=== PATIENT | female | born 2000 | race Caucasian/White ===

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

== ENCOUNTER 2020-01-04 17:22 | Outpatient (CLI) | payer MEDICAID | END 2020-01-04 17:23 | disposition home or self-care (01) | LOC: COV 17:22 | PROVIDERS: ATTEND Family Medicine | DX: R05 Cough (principal); R50.9 Fever, unspecified | CPT/HCPCS: 81599 ==

== ENCOUNTER 2020-10-12 19:09 | Emergency (ER) | payer MEDICAID ==
--- NOTE | 2020-10-12 21:25 | ED Physician Documentation ---
PD HPI BACK PAIN - Stated complaint Stated Complaint: FALL DOWN STAIRS - Chief complaint Chief Complaint: Ext Problem - History obtained from History obtained from: Patient - History of Present Illness Timing - onset: Last night (about 20:30 hours in evening) Timing - details: Abrupt onset, Still present Location: Lower, Other (midline) Quality: Other (slipped and fell backward on stair and struck low back. Pain in low back. No leg weakness nor numbness. No radiating pain.) Associated symptoms: No: Fever, Weakness, Numbness Worsened by: Movement, Twisting Contributing factors: Trauma (fell and struck low back on stair.). 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 HEENT: None Psych: None Musculoskeletal: None Derm: None - Past Surgical History Past Surgical History: No - Present Medications Home Medications: Ambulatory Orders Medication Instructions Recorded Confirmed Ondansetron HCl [Zofran] 4 mg PO Q6H PRN #10 tablet 12/20/16 10/12/20 Ibuprofen [Motrin] 800 mg PO Q8H PRN #30 tablet 12/11/18 10/12/20 Hydrocodone/Acetaminophen [Sylmar 1 each PO Q6H PRN #15 tablet 10/12/20 5-325 Tablet] tiZANidine [Zanaflex] 4 mg PO Q8H PRN #15 tablet 10/12/20 - Allergies Allergies/Adverse Reactions: Allergies Allergy/AdvReac Type Severity Reaction Status Date / Time No Known Drug Allergies Allergy Verified 10/12/20 19:25 - Social History Does the pt smoke?: No Smoking Status: Never smoker Does the pt drink ETOH?: No Does the pt have substance abuse?: No Substance Use and Type: CBD oil / Products - Immunizations Immunizations are current?: Yes - POLST Patient has POLST: No PD ED PE NORMAL - Vitals Vital signs reviewed: Yes - General General: Alert and oriented X 3, No acute distress (guarded ROM for low back but not appearing in significant distress. ), Well developed/nourished - HEENT HEENT: Atraumatic - Neck Neck: Supple, no meningeal sign, No bony TTP - Respiratory Respiratory: Clear bilaterally - Abdomen Abdomen: Soft, Non tender - Back Back: No CVA TTP, Other (tender in mid lumbar area midline, without deformity. No noted bruising nor redness. ) - Derm Derm: Normal color, Warm and dry - Neuro Neuro: Alert and oriented X 3, No motor deficit, No sensory deficit Results - Vitals Vitals: Vital Signs - 24 hr 10/12/20 10/12/20 19:10 23:12 Temperature 36.0 C L 36.8 C Heart Rate 99 93 Respiratory 16 16 Rate Blood Pressure 140/90 H 131/82 H O2 Saturation 99 96 Oxygen O2 Source Room air - Rads (name of study) lumbar CT Radiology: Prelim report reviewed (no noted fractures), See rad report PD MEDICAL DECISION MAKING - ED course Complexity details: reviewed results, considered differential, d/w patient Departure - Departure Disposition: 01 Home, Self Care Clinical Impression: Fall from slip, trip, or stumble Qualifiers: Encounter type: initial encounter Qualified Code(s): W01.0XXA - Fall on same level from slipping, tripping and stumbling without subsequent striking against object, initial encounter Contusion of lower back Qualifiers: Encounter type: initial encounter Qualified Code(s): S30.0XXA - Contusion of lower back and pelvis, initial encounter Condition: Stable Record reviewed to determine appropriate education?: Yes Instructions: ED Low Back Pain Injury Follow-Up: Marie Wells PA-C [Primary Care Provider] - Prescriptions: Hydrocodone/Acetaminophen [Sylmar 5-325 Tablet] 1 each PO Q6H PRN #15 tablet PRN Reason: Pain tiZANidine [Zanaflex] 4 mg PO Q8H PRN #15 tablet PRN Reason: Spasms Comments: Your CT scan of the low back did not show any obvious organ injury or fractures. You will still be sore from the impact of the fall on the muscles and soft tissue. Activity as tolerated. Ibuprofen 600 mg 3 times a day with food for the next several days to a week. Add Tylenol or hydrocodone as needed for pain. You could also use tizanidine if needed for muscle spasms and stiffness. Recheck if not improved well over the next several days and resolved by a week. Okay to resume work based on level of comfort and modulate activity level based on that. Bleeding no repetitive bending or lifting for couple of days. Discharge Date/Time: 10/12/20 23:23
[2020-10-12] MEDS ORDERED: HYDROmorphone 2 MG/ML VIAL IM STA (21:33)
[2020-10-12] MEDS ORDERED: KETOROLAC 30 MG/ML VIAL IM STA (21:33)
[2020-10-12] MEDS ORDERED: HYDROcod/ACET 5/325 Prepack 4 PO STA (22:41)
[2020-10-12 23:13] VITALS: BP 131/82
--- NOTE | 2020-10-13 09:20 | CT Report ---
PROCEDURE: LUMBAR SPINE WO INDICATIONS: fall and struck low back TECHNIQUE: Noncontrast 3 mm thick sections acquired from the T12 level to the sacrum. Sagittal and coronal refo rmats were constructed. For radiation dose reduction, the following was used: automated exposure co ntrol, adjustment of mA and/or kV according to patient size. COMPARISON: None. FINDINGS: Image quality: Excellent. Bones: There is normal bony alignment. No acute vertebral body compression fractures. No suspiciou s lytic or blastic bony lesions. Central spinal caliber is of normal overall caliber. No pars defec ts. T12-L1: Normal in appearance. L1-L2: Normal in appearance. L2-L3: Normal in appearance. L3-L4: Normal in appearance. L4-L5: Normal in appearance. L5-S1: Normal in appearance. Soft tissues: No retroperitoneal masses or hematomas. Visualized aorta is normal in caliber. IMPRESSION: No lumbar spine fracture. No significant discrepancy with the preliminary report. Reviewed by: Az Solorzano MD on 10/13/2020 9:19 AM [facility] Approved by: Az Solorzano MD on 10/13/2020 9:19 AM PST Station ID: [id number]
--- OUTSIDE RECORDS SUMMARY | 2020-10-19 00:53 | EXTERNAL MEDICAL SUMMARY RPT | Continuity of Care Document ---
:2000 Demographics Phone Unavailable Preferred Language Kyrgyz Marital Status Unknown Druze Affiliation Unknown Race Unknown Ethnic Group Unknown Author Organization [place] Address [address] [place] [address] Phone Care Team Providers Name Role Phone Marie Wells Unavailable Unavailable Liat BRIONES, Unavailable Unavailable Problems date description facility 2020-08-12 00:00:00 Exercise induced bronchospasm [facility] 2020-08-12 00:00:00 [facility]related [facility] 2020-08-12 00:00:00 [facility] 2020-08-12 00:00:00 Exercise [facility] 2020-08-12 00:00:00 Never smoker [facility] 2020-08-12 00:00:00 Exercise-induced asthma [facility] 2020-08-12 00:00:00 [facility] 2020-08-12 00:00:00 Feeling down, depressed, or [facility] hopeless? [facility] 2020-08-12 00:00:00 Patient Health Questionnaire [facility] item ([facility] total score [facility] 2020-08-12 00:00:00 Alcohol use [facility] 2020-08-12 00:00:00 Total score? [facility] 2020-09-26 00:00:00 Health-related behavior [facility] 2020-09-26 00:00:00 [facility] exposure [facility] 2020-09-26 00:00:00 Exercise [facility] 2020-09-26 00:00:00 [facility] smoker [facility] 2020-09-26 00:00:00 [facility] 2020-10-12 19:09 CONTUSION OF [facility]OWER [facility] [place] P[facility], INITIAL ENCOUN 2020-10-12 19:09 FALL (ON) (FROM) UNSPECIFIED [facility] STAIRS AND STEPS, INI 2020-10-12 [address] IN UNSP NON-INSTITUT [facility] (PRIVATE) RESIDENC 2020-10-12 19:09 ACTIVITY, WALKING, MARCHING AND [facility] HIKING Allergies date description facility NO KNOWN ENVIRONMENTAL ALLERGIES [facility] NO KNOWN ALL[facility]GIES [facility]AC[facility]AM [facility] MARTA [facility]IBIT[facility] IODINE AND IODIDE CONTAINING PRODUCTS [facility] PISTACHIO NUT [facility] MET[facility]ROLOL [facility]IN [facility]IL [facility] No Known Drug Allergies [facility] Social History date description facility 2020-08-12 00:00:00 [facility] date description facility 2020-09-26 00:00:00 [facility] Social History date description facility 2020-08-12 00:00:00 [facility] date description facility 2020-09-26 00:00:00 [facility] date description facility [id number]
== END 2020-10-12 23:23 | disposition home or self-care (01) ==
LOC: ED 19:09
DX: S30.0XXA Contusion of lower back and pelvis, initial encounter (principal); W10.9XXA Fall (on) (from) unspecified stairs and steps, initial encounter; Y93.01 Activity, walking, marching and hiking; Y92.009 Unspecified place in unspecified non-institutional (private) residence as the place of occurrence of the external cause
CPT/HCPCS: 72131; 96372; 99284; J1170

== ENCOUNTER 2021-02-15 08:00 | Outpatient (CLI) | payer MEDICAID ==
--- NOTE | 2021-02-15 18:56 | XRAY Report ---
PROCEDURE: Mastoids 2 Views INDICATIONS: R JAW PAIN TECHNIQUE: 3 views of the mastoids were obtained COMPARISON: None. FINDINGS: Normal bone mineralization. Mastoids are appropriately aerated without evidence of sclerosis or opaci fication. Both temporomandibular joints are unremarkable. No lytic or blastic lesions. No radiopaque foreign bodies IMPRESSION: Unremarkable mastoid radiographs Reviewed by: Serge Berry MD on 02/15/2021 5:55 PM [facility] Approved by: Serge Berry MD on 02/15/2021 5:55 PM [facility] Station ID: [id number]
== END 2021-02-15 23:59 | disposition home or self-care (01) ==
LOC: DI.N 08:00 → MERGE 17:30 → DI.N 23:59
PROVIDERS: ATTEND Family Medicine
DX: R68.84 Jaw pain (principal)

== ENCOUNTER 2021-02-17 23:17 | Emergency (ER) | payer MEDICAID ==
--- NOTE | 2021-02-18 00:05 | ED Physician Documentation ---
PD HPI HEENT - Stated complaint Stated Complaint: R LOWER JAW PX - Chief complaint Chief Complaint: Heent - History obtained from History obtained from: Patient - History of Present Illness Timing - onset: How many weeks ago (3) Timing - duration: Weeks (3) Timing - details: Gradual onset, Constant, Waxing and waning Pain level now: 4 Location: Other (right jaw at TMJ) Improves: Nothing Worsens: Other (opening mouth) Associated symptoms: No: Fever, Congestion, Rhinorrhea, Trismus, Unable to swallow, Swollen nodes, Facial swelling, Headache, Cough Similar symptoms before: No diagnosis Recently seen: Clinic - Additional information Additional information: c/o 3 weeks of atraumatic right jaw pain centered at right TMJ. pain radiates to the right ear and is distinctly worse when trying to open mouth wide as well as chewing. Denies fever, denies sore throat. She denies having similar symptoms previously. She says she was evaluated by a dentist 2 days ago and had xrays (her description suggests panorex xray) and she was told there was no abnormality found nor concern for acute/emergent dental problem. Later the same day, she was evaluated at a walk-in clinic and she had mastoid xrays performed (these are available to me in PACS and they are interpreted by radiologist as "unremarkable mastoid radiographs"). she was prescribed diclofenac but this is not providing adequate pain relief. Review of Systems Constitutional: denies: Fever, Chills, Sweats Ears: reports: Ear pain. 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 : None HEENT: None Psych: None Musculoskeletal: None Derm: None - Past Surgical History Past Surgical History: No - Present Medications Home Medications: Ambulatory Orders Medication Instructions Recorded Confirmed tiZANidine [Zanaflex] 4 mg PO Q8H PRN #15 tablet 10/12/20 02/17/21 Diclofenac Submicronized 75 mg PO BID 02/17/21 02/17/21 [Diclofenac] Cyclobenzaprine [Flexeril] 10 mg PO TID PRN #20 tablet 02/18/21 oxyCODONE/ACET 5/325 [Percocet 5 1 - 2 each PO Q6H PRN #14 tablet 02/18/21 mg/325 mg] - Allergies Allergies/Adverse Reactions: Allergies Allergy/AdvReac Type Severity Reaction Status Date / Time No Known Drug Allergies Allergy Verified 02/17/21 23:29 - Social History Does the pt smoke?: No Smoking Status: Never smoker Does the pt drink ETOH?: No Does the pt have substance abuse?: No - Immunizations Immunizations are current?: Yes - POLST Patient has POLST: No PD ED PE NORMAL - Vitals Vital signs reviewed: Yes - General General: Alert and oriented X 3, No acute distress, Well developed/nourished - HEENT HEENT: Atraumatic, Moist mucous membranes, Pharynx benign, Dentition benign - Neck Neck: Supple, no meningeal sign PD ED PE EXPANDED - HEENT HEENT: Ears normal (normal right external auditory canal, normal right TM; no pain elicited with pressure to tragus. ), Other (no mastoid tenderness or erythema. there is TTP of right TMJ and limited opening of mouth due to right jaw pain but she is able to open mouth to allow for intraoral and posterior o/p exam. no posterior o/p swelling, erythema, exudate. normal gingiva and oral mucosa) Results - Vitals Vitals: Vital Signs - 24 hr 02/17/21 02/17/21 02/18/21 23:27 23:34 00:47 Temperature 36.5 C 36.5 C 36.5 C Heart Rate 92 92 81 Respiratory 17 17 16 Rate Blood Pressure 148/94 H 148/94 H 142/79 H O2 Saturation 100 100 100 Oxygen O2 Source Room air PD MEDICAL DECISION MAKING - ED course Complexity details: reviewed old records (reviewed mastoid xrays that were performed 02/15/21), considered differential, d/w patient ED course: normal exam except for TTP directly over right TMJ and mild limitation in ROM of jaw (cannot open mouth fully, but enough to allow for complete intraoral exam including posterior o/p). H+P strongly suggests pathology limited to right temporomandibular joint without evidence (neither physical nor historical) of infectious etiology. Denies trauma. She had xrays performed 02/15/21 and was evaluated by a dentist as well as in walk-in clinic. Emergent testing is not indicated at this time. I advised her to follow up with her primary care provider, also provided information for f/u with Dr. Suresh Torre. She given rx for flexeril and percocet for symptom relief Departure - Departure Disposition: 01 Home, Self Care Clinical Impression: TMJ arthralgia Qualifiers: Laterality: right Qualified Code(s): M26.621 - Arthralgia of right temporomandibular joint Condition: Good Instructions: NARCOTIC, Oral, ED TMJ Syndrome Follow-Up: Suresh Torre DDS [Provider Admit Priv/Credential] - Prescriptions: Cyclobenzaprine [Flexeril] 10 mg PO TID PRN #20 tablet PRN Reason: Spasms oxyCODONE/ACET 5/325 [Percocet 5 mg/325 mg] 1 - 2 each PO Q6H PRN #14 tablet PRN Reason: Pain Comments: As we discussed, you should continue with the diclofenac as prescribed. You can take the percocet and flexeril in addition to the diclofenac if you don't experience adequate relief with the diclofenac alone. You would likely benefit from follow up with a specialist such as ENT or OMFS (gama-maxillo facial surgery). Discharge Date/Time: 02/18/21 00:47
[2021-02-18] MEDS ORDERED: CYCLOBENZAPRINE 10 MG Prepack 2 PO STA (00:30)
[2021-02-18] MEDS ORDERED: oxyCODONE/ACET 5/325 Prepack 4 PO STA (00:30)
[2021-02-18 00:48] VITALS: BP 142/79
== END 2021-02-18 00:47 | disposition home or self-care (01) ==
LOC: ED 23:17
DX: M26.621 Arthralgia of right temporomandibular joint (principal)
CPT/HCPCS: 99282; 99283

== ENCOUNTER 2021-08-17 09:02 | Outpatient (CLI) | payer MEDICAID ==
[2021-08-17 13:00] LABS: BASOPHILS # (AUTO) 0.1 10^3/uL (0.0-0.1); BASOPHILS % (AUTO) 0.7 %; EOSINOPHILS # (AUTO) 0.1 10^3/uL (0.0-0.7); EOSINOPHILS % (AUTO) 1.5 %; HGB - HEMOGLOBIN 13.8 g/dL (12.0-16.0); LYMPHOCYTES # (AUTO) 3.2 10^3/uL (1.5-3.5); LYMPHOCYTES % (AUTO) 35.2 %; MEAN CORPUSCULAR HEMOGLOBIN 28.4 pg (27.0-31.0); MEAN CORPUSCULAR HGB CONC 32.1 g/dL (32.0-36.0); MEAN CORPUSCULAR VOLUME 88.5 fL (81.0-99.0); MEAN PLATELET VOLUME 11.4 fL (7.9-10.8); MONOCYTES # (AUTO) 0.7 10^3/uL (0.0-1.0); MONOCYTES % (AUTO) 7.4 %; NEUTROPHILS # (AUTO) 4.9 10^3/uL (1.5-6.6); PLT - PLATELET COUNT 319 10^3/uL (130-450); RED BLOOD COUNT 4.86 10^6/uL (4.20-5.40); RED CELL DISTRIBUTION WIDTH 12.6 % (12.0-15.0)
[2021-08-17 13:05] LABS: ESTIMATED AVERAGE GLUCOSE 108 mg/dL (70-100); HEMOGLOBIN A1c% 5.4 % (4.27-6.07)
[2021-08-17 13:10] LABS: CREATININE,URINE 140.3 mg/dL; MICROALBUM/CREATININE RATIO,UR 5.7 ug/mg (<30.0); MICROALBUMIN,URINE 0.8 mg/dL (0-300.0)
[2021-08-17 13:13] LABS: ALBUMIN 4.3 g/dL (3.2-5.5); ALBUMIN/GLOBULIN RATIO 1.2 (1.0-2.2); ALKALINE PHOSPHATASE 97 IU/L (42-121); ALT ALANINE AMINOTRANSFERASE 18 IU/L (10-60); AST ASPARTATE AMINOTRANSFERASE 17 IU/L (10-42); BILIRUBIN,TOTAL 0.7 mg/dL (0.2-1.0); BUN - BLOOD UREA NITROGEN 15 mg/dL (6-20); CALCIUM 9.7 mg/dL (8.5-10.3); CARBON DIOXIDE - CO2 27 mmol/L (21-32); CHLORIDE 106 mmol/L (101-111); CHOL/HDL RATIO 2.7 (<4.4); CHOLESTEROL 137 mg/dL; CREATININE 0.5 mg/dL (0.4-1.0); GFR - MDRD 156 (>89); GLUCOSE 95 mg/dL (70-100); HDL CHOLESTEROL 51 mg/dL; LDL CHOLESTEROL,CALCULATED 65 mg/dL; LDL/HDL RATIO 1.3 (<4.4); POTASSIUM 4.2 mmol/L (3.5-5.0); SODIUM 142 mmol/L (135-145); TRIGLYCERIDES 104 mg/dL; VLDL CHOLESTEROL 21 mg/dL
[2021-08-17 13:23] LABS: THYROID STIMULATING HORMONE 1.78 uIU/mL (0.34-5.60)
== END 2021-08-17 09:03 | disposition home or self-care (01) ==
LOC: LAB.N 09:02
PROVIDERS: ATTEND Internal Medicine
DX: R73.01 Impaired fasting glucose (principal); Z13.220 Encounter for screening for lipoid disorders; Z13.29 Encounter for screening for other suspected endocrine disorder; J45.990 Exercise induced bronchospasm
CPT/HCPCS: 36415; 80053; 80061; 82043; 82570; 83036; 83721; 84443; 85025

== ENCOUNTER 2021-11-23 09:41 | Outpatient (CLI) | payer MEDICAID ==
--- NOTE | 2021-11-23 12:44 | XRAY Report ---
PROCEDURE: TMJ's-Temporal Mandibular Jts INDICATIONS: CAPSULITIS OF TMJ, BILAT TECHNIQUE: 2 view(s) of the right and left temporomandibular joints acquired. COMPARISON: None FINDINGS: Bones: No fractures or dislocations. No suspicious bony lesions. Normal positioning of the mandible condylar heads in both the open and closed mouth positions. Soft tissues: No suspicious soft tissue calcifications. IMPRESSION: No fracture. No osseous lesion. If there are persistent symptoms or continued clinical concern for pa thology, then advanced imaging (CT or MRI) should be considered for further evaluation. Reviewed by: Regla Robbins MD, PhD on 11/23/2021 12:43 PM PST Approved by: Regla Robbins MD, PhD on 11/23/2021 12:43 PM PST Station ID: [id number]
== END 2021-11-23 09:42 | disposition home or self-care (01) ==
LOC: DI.N 09:41
PROVIDERS: ATTEND Internal Medicine
DX: M26.69 Other specified disorders of temporomandibular joint (principal)

== ENCOUNTER 2022-10-05 14:39 | Outpatient (CLI) | payer MEDICAID ==
[2022-10-05 18:26] LABS: BASOPHILS # (AUTO) 0.1 10^3/uL (0.0-0.1); BASOPHILS % (AUTO) 0.6 %; EOSINOPHILS # (AUTO) 0.1 10^3/uL (0.0-0.7); HCT - HEMATOCRIT 41.3 % (37.0-47.0); HGB - HEMOGLOBIN 13.4 g/dL (12.0-16.0); LYMPHOCYTES # (AUTO) 3.2 10^3/uL (1.5-3.5); MEAN CORPUSCULAR HEMOGLOBIN 28.6 pg (27.0-31.0); MEAN CORPUSCULAR HGB CONC 32.4 g/dL (32.0-36.0); MEAN CORPUSCULAR VOLUME 88.2 fL (81.0-99.0); MEAN PLATELET VOLUME 11.1 fL (7.9-10.8); MONOCYTES # (AUTO) 0.7 10^3/uL (0.0-1.0); MONOCYTES % (AUTO) 6.7 %; NEUTROPHILS # (AUTO) 6.5 10^3/uL (1.5-6.6); NEUTROPHILS % (AUTO) 61.5 %; PLT - PLATELET COUNT 319 10^3/uL (130-450); RED BLOOD COUNT 4.68 10^6/uL (4.20-5.40); RED CELL DISTRIBUTION WIDTH 12.2 % (12.0-15.0); WHITE BLOOD COUNT 10.6 x10^3/uL (4.8-10.8)
[2022-10-05 18:55] LABS: ALBUMIN 4.1 g/dL (3.2-5.5); ALBUMIN/GLOBULIN RATIO 1.1 (1.0-2.2); ALKALINE PHOSPHATASE 95 IU/L (42-121); ALT ALANINE AMINOTRANSFERASE 21 IU/L (10-60); AST ASPARTATE AMINOTRANSFERASE 20 IU/L (10-42); BILIRUBIN,TOTAL 0.7 mg/dL (0.2-1.0); BUN - BLOOD UREA NITROGEN 10 mg/dL (6-20); CALCIUM 9.9 mg/dL (8.5-10.3); CARBON DIOXIDE - CO2 28 mmol/L (21-32); CHLORIDE 100 mmol/L (101-111); CHOL/HDL RATIO 2.4 (<4.4); CHOLESTEROL 150 mg/dL; CREATININE 0.6 mg/dL (0.4-1.0); GFR - MDRD 125 (>89); GLUCOSE 85 mg/dL (70-100); HDL CHOLESTEROL 62 mg/dL; LDL CHOLESTEROL,CALCULATED 73 mg/dL; LDL/HDL RATIO 1.2 (<4.4); POTASSIUM 3.9 mmol/L (3.5-5.0); SODIUM 138 mmol/L (135-145); TOTAL PROTEIN 7.9 g/dL (6.7-8.2); TRIGLYCERIDES 76 mg/dL; VLDL CHOLESTEROL 15 mg/dL
[2022-10-05 19:00] LABS: THYROID STIMULATING HORMONE 2.14 uIU/mL (0.34-5.60)
[2022-10-05 22:17] LABS: ESTIMATED AVERAGE GLUCOSE 111 mg/dL (70-100); HEMOGLOBIN A1c% 5.5 % (4.27-6.07)
== END 2022-10-05 14:40 | disposition home or self-care (01) ==
LOC: LAB.N 14:39
PROVIDERS: ATTEND Internal Medicine
DX: Z79.899 Other long term (current) drug therapy (principal); Z13.220 Encounter for screening for lipoid disorders; R73.01 Impaired fasting glucose; Z13.29 Encounter for screening for other suspected endocrine disorder
CPT/HCPCS: 36415; 80053; 80061; 83036; 83721; 84443; 85025

== ENCOUNTER 2022-10-24 14:16 | Emergency (ER) | payer MEDICAID ==
[2022-10-24 14:23] VITALS: BP 141/89
--- OUTSIDE RECORDS SUMMARY | 2022-10-24 14:36 | EXTERNAL MEDICAL SUMMARY RPT | Continuity of Care Document ---
:2000 Author Organization [facility] Address [address] [place] [address] Phone Care Team Providers Name Role Phone Mitchell Costa Unavailable Unavailable Allergies and Intolerances date description facility type (no date) No Known Drug Allergies [facility] (unkn own) Encounters No information. Functional Status No information. Immunizations No information. Medications No information. Problems date description facility 2022-10-23 00:00 Patient left before evaluation by [facility] Procedures No information. Results/Labs test date author facility value unit interpret ation Result panel 1 (unknown) (no date) (unknown) [facility] (no value) (units ([facility]) Hospital unknown) Result panel 2 (unknown) (no date) (unknown) [facility] (no value) (units ([facility]own) Hospital unknown) Result panel 3 (unknown) (no date) (unknown) [facility] (no value) (units ([facility]) Hospital unknown) Result panel 4 (unknown) (no date) (unknown) (unknown) Flu A (units (unkn own) NEGATIVE unknown) (unknown) (no date) (unknown) (unknown) Flu B (units (unkn own) NEGATIVE unknown) (unknown) (no date) (unknown) (unknown) Negative (units (unkn own) unknown) (unknown) (no date) (unknown) (unknown) Negative (units (unkn own) unknown) Result panel 5 (unknown) (no date) (unknown) (unknown) (no value) (units (un known) unknown) (unknown) (no date) (unknown) (unknown) Heavy growth (units ( unknown) - Mixed unknown) resident mirza Social History date description facility 2022-10-22 00:00 Never smoked tobacco (finding) [facility] Vital Signs date measurement value units 2022-10-22 00:00 BMI 45.5 kg/m2 2022-10-22 00:00 BP_diastolic 78 mmHg 2022-10-22 00:00 BP_systolic 123 mmHg 2022-10-22 00:00 heart_rate 89 /min 2022-10-22 00:00 height_metric 167.64 cm 2022-10-22 00:00 height_standard 66 in 2022-10-22 00:00 o2_saturation 100 % 2022-10-22 00:00 respiration_rate 20 /min 2022-10-22 00:00 temperature_metric 36.33 C 2022-10-22 00:00 temperature_standard 97.4 F 2022-10-22 00:00 weight_metric 127.91 kg 2022-10-22 00:00 weight_standard 281.99 lb
[2022-10-24 14:38] LABS: RAPID STREP SCREEN Negative (Negative)
[2022-10-24] MEDS ORDERED: DEXAMETHASONE 10 MG/ML VIAL PO STA (15:54)
[2022-10-24] MEDS ORDERED: IBUPROFEN 600 MG TABLET PO STA (15:54)
[2022-10-24] MEDS ORDERED: CHERRY SYRUP 10 ML UDC PO ONE (15:54)
--- NOTE | 2022-10-24 15:57 | ED Physician Documentation ---
PD HPI HEENT - Stated complaint Stated Complaint: THROAT PX - Chief complaint Chief Complaint: Heent - History obtained from History obtained from: Patient - Additional information Additional information: Patient is a 22-year-old female presenting for evaluation of a sore throat that has been present for 1 week. She reports she is able to swallow but that it hurts. Liquids to feel better than solid food. She went to the [place] [facility] earlier this week but it was busy so she left before being seen. She reports having recurrent episodes similar to this since July. She was seen at the walk-in clinic previously several weeks ago and told that her strep test at that time was negative. Her symptoms improved with that of come back again. She denies fever, cough, congestion, chest pain, difficulty breathing. She has never seen an ENT. She is not taking any medications for this. Review of Systems Constitutional: denies: Fever Nose: denies: Congestion Throat: reports: Sore throat Cardiac: denies: Chest pain / pressure Respiratory: denies: Dyspnea GI: denies: Abdominal Pain Neurologic: denies: Headache PD PAST MEDICAL HISTORY - Past Medical History Cardiovascular: None Respiratory: None Neuro: None Endocrine/Autoimmune: None GI: None BEARING GRINDER: None : None HEENT: None Psych: None Musculoskeletal: None Derm: None - Past Surgical History Past Surgical History: No - Present Medications Home Medications: Ambulatory Orders Medication Instructions Recorded Confirmed tiZANidine [Zanaflex] 4 mg PO Q8H PRN #15 tablet 10/12/20 02/17/21 Diclofenac Submicronized 75 mg PO BID 02/17/21 02/17/21 [Diclofenac] Cyclobenzaprine [Flexeril] 10 mg PO TID PRN #20 tablet 02/18/21 oxyCODONE/ACET 5/325 [Percocet 5 1 - 2 each PO Q6H PRN #14 tablet 02/18/21 mg/325 mg] - Allergies Allergies/Adverse Reactions: Allergies Allergy/AdvReac Type Severity Reaction Status Date / Time No Known Drug Allergies Allergy Verified 10/24/22 14:23 - Social History Does the pt smoke?: No Smoking Status: Never smoker Does the pt drink ETOH?: No Does the pt have substance abuse?: No - Immunizations Immunizations are current?: Yes - POLST Patient has POLST: No PD ED PE NORMAL - General General: Alert and oriented X 3, No acute distress, Well developed/nourished - HEENT HEENT: Atraumatic, Moist mucous membranes, Pharynx benign (No oral swelling, exudate or erythema, normal speech) - Neck Neck: Supple, no meningeal sign - Cardiac Cardiac: RRR, No murmur - Respiratory Respiratory: No respiratory distress - Derm Derm: Warm and dry - Neuro Neuro: Normal speech Results - Vitals Vitals: Vital Signs - 24 hr 10/24/22 14:19 Temperature 36.1 C L Heart Rate 89 Respiratory 16 Rate Blood Pressure 141/89 H O2 Saturation 100 Oxygen O2 Source Room air - Labs Labs: Laboratory Tests 10/24/22 14:25 Group A Strep Rapid Negative PD Medical Decision Making - ED course Complexity details: reviewed results ED course: Patient evaluated for sore throat. Her vital signs are stable. Her speech is clear. There is no signs of airway compromise. She has no signs of oral swelling or abscess. Her strep swab is negative. Suspect viral etiology. Discussed options for treatment. Patient is comfortable with plan for Decadron and ibuprofen.She reports having recurrent episodes similar to this since July so I did give her information for local ENT office. Patient is counseled on concerning symptoms to return for. Departure - Departure Disposition: Home, Self Care Clinical Impression: Viral pharyngitis Condition: Stable Instructions: ED Pharyngitis Viral Comments: Your Strep test is negative. There are other causes of pharyngitis or sore throat including viral Etiologies.I have given you a dose of a steroid which should help reduce the inflammation that you are feeling. I would also continue with anti-inflammatory such as ibuprofen. I have also listed the information for one of the ENT offices given that you have reported having numerous episodes of sore throats in the last several months I have included the information for an ear nose and throat office. [facility] [place] [facility] [address] [place] [address], [facility] [place] [address] Discharge Date/Time: 10/24/22 16:13
== END 2022-10-24 16:13 | disposition home or self-care (01) ==
LOC: ED 14:16
DX: J02.8 Acute pharyngitis due to other specified organisms (principal)
CPT/HCPCS: 87070; 87430; 99282; 99283; A9270

== ENCOUNTER 2023-03-06 14:50 | Outpatient (CLI) | payer MEDICAID ==
--- NOTE | 2023-03-06 15:28 | Sleep Patient Instructions ---
Sleep Center Visit Summary - Patient Visit Information Reason for Visit: Initial consult for evaluation of sleep disordered breathing and other sleep issues. - Patient Instructions Instructions Attached: Sleep Study, Sleep Clinic Visit, Sleep Study Home Monitor Additional Instructions: You will be completing a sleep study, either an in-lab polysomnography (PSG) or home sleep study (HST). You will follow-up in the sleep care office after the sleep study is completed to hear the results and talk about therapy, if needed. You will be called by our office staff to schedule this appointment, but you may contact us with any questions. - Clinic Information Contact: [facility] [address] [place] [email or web address] T: [phone]
--- NOTE | 2023-03-06 15:39 | SLEEP CARE CONSULTATION ---
Information from patient questionnaire entered by Radha Talley. I have reviewed and concur with the information entered by Radha Talley. This document represents the service I personally performed and the decisions made by me, Filomena Marie ARNP. History of Present Illness Service Date and Time: 03/06/2023 1450 Reason for Visit: New patient Chief Complaint: reports: Insomnia, Unrefreshed sleep Date of Onset: 5-8YRS Usual bedtime: 11AM 12-2AM Time it takes to fall asleep: 2-3HRS Snores at night: Yes Observed to quit breathing while asleep: Yes Sleeps alone due to snoring: No Number of times waking at night: 2-3 Reasons for waking at night: reports: Choking, Snoring, Gasping for air, Bathroom, Other (UNKNOWN) Toss, Turn, or Twitch while sleeping: Yes Recalls having dreams: Yes Usually gets out of bed at: 530-6AM Feels refreshed in the morning: No Morning headache: Yes (2-3 times a week; last 1 hr or so, resolved in 2-3 hours) Sleepy or fatigued during the day: Yes Ever fallen asleep while driving: No Takes day naps: Yes (mostly unintentional naps; 2-3 times a week) Dreams during day naps: Yes Prior sleep studies: No Additional HPI information: I had the pleasure of seeing GREGORIA MENDOZA today regarding the possibility of her having a sleep disorder. Her current complaints are insomnia and unrefreshed sleep. She is scheduled to get her tonsils out but they wanted her to see sleep specialist before anesthesia is used during surgery. They are taking out her tonsils because they will sometimes swell and make it difficult for her to swallow. She states she has been told by her family that she snores. She will wake up with a dry throat that is sore often. She states her boyfriend will wake her up because she is making noises like choking in her sleep after stopping breathing. She has woke up feeling like she is choking and gasping for air. She does not always feel rested when she wakes up in the morning. She frequently wakes up with headaches. She will take naps a few times a week but most of the time they are unintentional. 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 Patient is Single and lives in [place]. Have you smoked in the past 12 months: No Alcohol use: Yes Alcohol amount and frequency: 1-2 PARTIES OR FAMILY GATHERINGS Caffeine use: No Family History Family history of sleep disordered breathing: Yes Family Hx Sleep Apnea: Father: Snoring Allergies and Home Medications Known drug allergies: No Drug allergies reviewed: Yes Home medication list reviewed: Yes Allergy and home medication list: Allergies No Known Drug Allergies Allergy (Verified 03/05/23 15:47) Medications: Metformin 500 mg daily Review of Systems Weight gain over past 5 years: 5 (she had lost 10 pounds and now gained 5 back) Weight loss over past 5 years: 10 Cardiovascular: denies: high blood pressure Gastrointestinal: reports: heartburn Neurological: denies: headaches Psychiatric: reports: anxiety Ear/Nose/Throat: denies: tonsillectomy Endocrine: reports: too hot or cold. denies: thyroid disease Musculoskeletal: reports: neck pain Physical Exam Vital signs obtained and entered by: RADHA Hancock MA Blood Pressure: 132/84 (LEFT ARM) Cuff size: long Heart Rate: 82 O2 Saturation: 97 Height: 5 ft 6 in Weight: 307 lb Body Mass Index: 49.5 BMI Classification: Morbidly Obese Neck circumference: 16 Mouth and throat: normal Soft palate: normal Hard palate: normal Uvula: long Uvula visualization: 100% Mallampati Class I Tongue: enlarged in size with teeth archer on lateral edges Tonsils: 2+ Neck: normal w/o lymphadenopathy or thyromegaly Heart: regular rate and rhythm Lungs: clear bilaterally Impression and Plan 1. Suspected Obstructive Sleep Apnea-Hypopnea Syndrome, as suggested by a history of loud and irregular snoring, observed cessation of breath while asleep, gasping or choking in sleep, morning headache, unrefreshed sleep, cognitive impairment, and excessive daytime sleepiness. Narrow oropharynx and obesity are common predisposing factors for obstructive sleep apnea-hypopnea syndrome. I recommend proceeding to polysomnography to confirm the diagnosis and to assess severity. If the patient has significant sleep disordered breathing, a manual CPAP titration study will also be performed to find the optimal treatment pressure. I informed the patient of what the sleep studies involve and after some discussion, obtained agreement to proceed. The pathophysiology of obstructive sleep apnea-hypopnea syndrome was discussed with the patient and health risks of cardiovascular and cerebrovascular disease if not treated. Risks of drowsy driving discussed in detail and patient advised to avoid long distance driving and to taffy puller at the first sign of drowsiness. Patient agreed to plan. * Schedule polysomnography +- manual CPAP titration study and return in 1-2 weeks after the study to discuss result and initiate therapy. * Avoid long distance driving or driving when feeling sleepy. * Avoid alcohol, sedative and muscle relaxant around bedtime. * Attempt to lose weight. * Review instructions provided by trained office staff on how to prepare for the sleep study. * Return for follow-up after sleep study completed. Counseling Topics: Weight loss health impact Visit Type: In Office Time Spent with Patient (minutes): 30 Provider Statement: I spent 100% of the Face to Face Visit with the patient with greater than 50% spent counseling the patient and coordination of care.
[2023-03-06 15:41] VITALS: BP 132/84
== END 2023-03-06 14:51 | disposition home or self-care (01) ==
LOC: SC 14:50
PROVIDERS: ATTEND Nurse Practitioner Family
DX: G47.10 Hypersomnia, unspecified (principal); R53.83 Other fatigue; R51.9 Headache, unspecified; G47.8 Other sleep disorders; R06.83 Snoring; R06.81 Apnea, not elsewhere classified; E66.01 Morbid (severe) obesity due to excess calories; Z68.42 Body mass index [BMI] 45.0-49.9, adult
CPT/HCPCS: 99203; 99212

== ENCOUNTER 2023-03-11 08:00 | Outpatient (CLI) | payer MEDICAID ==
[2023-03-11 21:03] LABS: BILIRUBIN,URINE NEGATIVE (NEGATIVE); GLUCOSE, URINE (UA) NEGATIVE (NEGATIVE); KETONES,URINE (UA) TRACE mg/dL (NEGATIVE); LEUKOCYTE ESTERASE, URINE NEGATIVE (NEGATIVE); NITRITE,URINE NEGATIVE (NEGATIVE); OCCULT BLOOD,URINE LARGE (NEGATIVE); PROTEIN,URINE TRACE mg/dL (NEGATIVE); UROBILINOGEN,URINE 0.2 (NORMAL) E.U./dL (NORMAL)
[2023-03-11 21:18] LABS: AMORPHOUS SEDIMENT,UR Marked /LPF; BACTERIA,URINE None Seen /HPF (None Seen); CLARITY,URINE CLOUDY (CLEAR); SQUAMOUS EPITHELIAL CELL,UR NONE SEEN (<= Few); WBC,URINE 0-3 /HPF (0-5)
== END 2023-03-11 23:59 | disposition home or self-care (01) ==
LOC: LAB.N 08:00
PROVIDERS: ATTEND Emergency Medicine
DX: N92.0 Excessive and frequent menstruation with regular cycle (principal)
CPT/HCPCS: 81001; 87086

== ENCOUNTER 2023-03-28 20:41 | Outpatient (CLI) | payer MEDICAID | END 2023-03-28 20:42 | disposition home or self-care (01) | LOC: SC 20:41 | PROVIDERS: ATTEND Nurse Practitioner Family | DX: G47.10 Hypersomnia, unspecified (principal); R53.83 Other fatigue; R51.9 Headache, unspecified; G47.8 Other sleep disorders; R06.83 Snoring; R06.81 Apnea, not elsewhere classified; E66.01 Morbid (severe) obesity due to excess calories; Z68.42 Body mass index [BMI] 45.0-49.9, adult | CPT/HCPCS: 95810 ==

== ENCOUNTER 2023-04-03 15:43 | Outpatient (CLI) | payer MEDICAID ==
--- NOTE | 2023-04-03 16:25 | SLEEP CARE CONSULTATION ---
Information from patient questionnaire entered by Dorita Talley. I have reviewed and concur with the information entered by Dorita Talley. This document represents the service I personally performed and the decisions made by , Filomena Marie ARNP. History of Present Illness Service Date and Time: 04/03/2023 154 Initial [place] Sleepiness Scale score: 12 (03/06/23) Current [place] Sleepiness Scale score: 9 (04/03/23) Additional HPI information: GREGORIA MENDOZA returns for follow up and results of the recently performed polysomnography. The patient was informed of the following findings: No significant sleep disord ered breathing with an average AHI of 4.4 and cara oxygen saturation of 91%. Supine AHI 5.2. I explained the pathophysiology behind obstructive sleep apnea. Patient does not have sleep apnea and was advised how weight gain could increase the risk of developing sleep apnea in the future. I strongly encouraged the patient to lose weight. Patient does not have significant sleep disordered breathing but has elevated AHI in supine position so advised positional therapy. Methods to achieve positional management therapy were discussed; such as, positioning with pillows, wearing a T-shirt with tennis balls sewn into the back or commercial products that can be obtained online. Patient has light snoring. Snoring can be reduced by weight loss. Weight loss is best achieved with diet consult. Patient instructed to contact PCP for referral. Snoring can also be treated with an oral appliance from a dentist. Advised to check insurance coverage. In addition, an ENT evaluation can be do to see if o ther treatment is indicated. Patient does not drink alcohol. Patient was cautioned about risks of drowsy driving until sleepiness symptoms resolve. Patient denies drowsy driving. Sleep Study - Results Type of Sleep Study: Polysomnography (COMPLETED 03/28/23) Prior sleep studies: No Polysomnography/Home Sleep Study results: IMPRESSION: The quality of the study is good. The patient had normal sleep efficiency. The sleep architecture was relatively normal as well considering the first night effect. Respiratory monitoring showed no significant sleep disordered breathing (AHI = 4.4) associated with frequent arousals, oxyhemoglo bin desaturation and no significant hypoxia (cara oxygen saturation of 91%). The patient slept adequately in supine position (supine AHI = 5.2; nonsupine = 4.01). No audible snore. There was no significant periodic leg movement of sleep. Cardiac rhythm was normal sinus rhythm without significant arrhythmia. No abnormal behavior (parasomnia) observ ed during the night. Allergies and Home Medications Known drug allergies: No (pork products-anaphalaxis) Drug allergies reviewed: Yes Home medication list reviewed: Yes (no changes) Allergy and home medication list: Allergies No Known Drug Allergies Allergy Review of Systems Review of systems same as previous: Yes (no changes) Physical Exam Vital signs obtained and entered by: DORITA Hancock MA Blood Pressure: 132/80 (LEFT ARM) Cuff size: long Heart Rate: 91 O2 Saturation: 98 Height: 5 ft 6 in Weight: 305 lb Body Mass Index: 49.2 BMI Classification: Morbidly Obese Impression and Plan 1. Snoring but no significant sleep disordered breathing. However, there is minimal elevation when sleeping supine and patient is encouraged to avoid supine sleep to reduce snoring and apneas. Patient advised that often weight loss will reduce snoring as well as apnea risk. An oral appliance can also be used for snoring. This would require a dental consultation. Patient cautioned not to use other online appliances as can cause bite issues. Patient is advised to check if insurance will cover. An ENT consult can also be helpful to determine if any other treatment is an option. 2. Obesity, unspecified. Currently patients BMI is 49.2. Obesity increases the risk of apnea and overall health risks especially cardiovascular and diabetes. Thus patient is advised to lose weight. * Attempt to lose weight * Avoid alcohol consumption near bedtime * The patient is cautioned about driving until sleepiness is completely resolved. * Return as needed for follow up. Counseling Topics: Sleeping position, Weight loss health impact Visit Type: In Office Time Spent with Patient (minutes): 11 Provider Statement: I spent 100% of the Face to Face Visit with the patient with greater than 50% spent counseling the patient and coordination of care.
[2023-04-03 16:26] VITALS: BP 132/80
== END 2023-04-03 15:44 | disposition home or self-care (01) ==
LOC: SC 15:43
PROVIDERS: ATTEND Nurse Practitioner Family
DX: R06.83 Snoring (principal); E66.01 Morbid (severe) obesity due to excess calories; Z68.42 Body mass index [BMI] 45.0-49.9, adult
CPT/HCPCS: 99212

== ENCOUNTER 2023-05-03 08:00 | Outpatient (CLI) | payer MEDICAID ==
[2023-05-03 20:56] LABS: BACTERIAL VAGINOSIS DNA NEGATIVE (NEGATIVE); CANDIDA GLABRATA DNA NEGATIVE (NEGATIVE); CANDIDA GROUP DNA NEGATIVE (NEGATIVE); CANDIDA KRUSEI DNA NEGATIVE (NEGATIVE); TRICHOMONAS VAGINALIS DNA NEGATIVE (NEGATIVE)
[2023-05-03 22:24] LABS: CHLAMYDIA TRACHOMATIS DNA NEGATIVE (NEGATIVE); NEISSERIA GONORRHOEAE DNA NEGATIVE (NEGATIVE)
== END 2023-05-03 23:59 | disposition home or self-care (01) ==
LOC: LAB.WC 08:00
PROVIDERS: ATTEND Nurse Practitioner
DX: N89.8 Other specified noninflammatory disorders of vagina (principal); Z11.3 Encounter for screening for infections with a predominantly sexual mode of transmission
CPT/HCPCS: 81514; 87491; 87591; 87661

== ENCOUNTER 2023-12-13 09:06 | Outpatient (CLI) | payer MEDICAID ==
[2023-12-13 12:32] LABS: BASOPHILS # (AUTO) 0.1 10^3/uL (0.0-0.1); BASOPHILS % (AUTO) 0.6 %; EOSINOPHILS # (AUTO) 0.1 10^3/uL (0.0-0.7); EOSINOPHILS % (AUTO) 1.3 %; HCT - HEMATOCRIT 42.1 % (37.0-47.0); HGB - HEMOGLOBIN 14.1 g/dL (12.0-16.0); LYMPHOCYTES # (AUTO) 3.1 10^3/uL (1.5-3.5); LYMPHOCYTES % (AUTO) 37.3 %; MEAN CORPUSCULAR HEMOGLOBIN 29.5 pg (27.0-31.0); MEAN CORPUSCULAR HGB CONC 33.5 g/dL (32.0-36.0); MEAN CORPUSCULAR VOLUME 88.1 fL (81.0-99.0); MEAN PLATELET VOLUME 11.5 fL (7.9-10.8); MONOCYTES # (AUTO) 0.5 10^3/uL (0.0-1.0); MONOCYTES % (AUTO) 6.1 %; NEUTROPHILS # (AUTO) 4.6 10^3/uL (1.5-6.6); NEUTROPHILS % (AUTO) 54.6 %; PLT - PLATELET COUNT 305 10^3/uL (130-450); RED BLOOD COUNT 4.78 10^6/uL (4.20-5.40); RED CELL DISTRIBUTION WIDTH 12.3 % (12.0-15.0); WHITE BLOOD COUNT 8.4 x10^3/uL (4.8-10.8)
[2023-12-13 12:39] LABS: ESTIMATED AVERAGE GLUCOSE 103 mg/dL (70-100); HEMOGLOBIN A1c% 5.2 % (4.27-6.07)
[2023-12-13 12:58] LABS: THYROID STIMULATING HORMONE 0.98 uIU/mL (0.34-5.60)
[2023-12-13 13:03] LABS: ALBUMIN 4.5 g/dL (3.2-5.5); ALBUMIN/GLOBULIN RATIO 1.6 (1.0-2.2); ALKALINE PHOSPHATASE 99 IU/L (42-121); ALT ALANINE AMINOTRANSFERASE 14 IU/L (10-60); AST ASPARTATE AMINOTRANSFERASE 14 IU/L (10-42); BILIRUBIN,TOTAL 0.7 mg/dL (0.2-1.0); BUN - BLOOD UREA NITROGEN 8 mg/dL (6-20); CALCIUM 9.9 mg/dL (8.5-10.3); CARBON DIOXIDE - CO2 27 mmol/L (21-32); CHLORIDE 106 mmol/L (101-111); CHOL/HDL RATIO 2.5 (<4.4); CHOLESTEROL 124 mg/dL; CREATININE 0.6 mg/dL (0.6-1.3); GFR - MDRD 124 (>89); GLUCOSE 95 mg/dL (74-104); HDL CHOLESTEROL 50 mg/dL; LDL CHOLESTEROL,CALCULATED 59 mg/dL; LDL/HDL RATIO 1.2 (<4.4); POTASSIUM 3.8 mmol/L (3.5-4.5); SODIUM 140 mmol/L (135-145); TOTAL PROTEIN 7.4 g/dL (6.4-8.9); TRIGLYCERIDES 76 mg/dL (48-352); VLDL CHOLESTEROL 15 mg/dL
== END 2023-12-13 09:07 | disposition home or self-care (01) ==
LOC: LAB.N 09:06
PROVIDERS: ATTEND Internal Medicine
DX: R73.01 Impaired fasting glucose (principal); Z13.220 Encounter for screening for lipoid disorders; Z13.29 Encounter for screening for other suspected endocrine disorder; K21.9 Gastro-esophageal reflux disease without esophagitis
CPT/HCPCS: 36415; 80053; 80061; 83036; 83721; 84443; 85025